=== PATIENT | female | born 1965 | race African-American/Black ===

== ENCOUNTER 2017-01-25 06:20 | Day surgery (SDC) | payer OTHER ==
[~2017-01-25] VITALS: Ht 170.2 cm; Wt 105.2 kg
--- NOTE | ~2017-01-25 | O ---
[facility] [place] [address] OPERATIVE REPORT Name: JIM NELSON Room #: DEP [facility].#: [id number] Admission: 01/25/17 Attend Phys: Jensen Monk DPM Discharge: 01/25/17 Date of : 69 Report #: [id number] THIS REPORT FOR: //name// CC: Jensen ESTES unknown DATE OF SERVICE: 01/25/2017 SURGEON: Jensen Monk DPM. PREOPERATIVE DIAGNOSES: 1. Hammertoe, fourth digit, left foot. 2. Skin lesion, plantar aspect of the right foot. POSTOPERATIVE DIAGNOSES: 1. Hammertoe, fourth digit, left foot. 2. Skin lesion, plantar aspect of the right foot. PROCEDURE: Arthroplasty, hammertoe correction, fourth digit, left foot and excision of lesion, plantar aspect of the right foot. ANESTHESIA: IV sedation, local nerve block. HEMOSTASIS: Applied well-padded ankle tourniquet to the left foot. ESTIMATED BLOOD LOSS: Minimal. COMPLICATIONS: There were no complications during the procedure or the anesthesia. Following is the preoperative course: The patient was seen in the office on a couple of occasions complaining of a painful interdigital corn between the fourth and fifth toes, left foot. X-ray examination showed a bony prominence on both the fifth toe and the fourth toe that was causing the pressure and associated corn. After careful evaluation preoperatively, it was determined that an arthroplasty of the fourth toe should resolve the interdigital corn. The patient also has a longstanding plantar lesion on the right foot, which has recurrently gotten infected and has been debrided on several occasions with recurrence noted on every single occasion of debridement. It was decided at this time as well that excision of this lesion would be performed to eradicate the lesion more permanently on the right foot. The patient understood the risks and complications involved and both these procedures and signed a preoperative consent form and made her understanding. DESCRIPTION OF PROCEDURE: The patient was wheeled in the operating room in the usual supine condition, transferred to the operative table, given IV sedation. [address] [address] OPERATIVE REPORT Name: OMARJIM M Room #: DEP [facility] M.R.#: [id number] Admission: 01/25/17 Attend Phys: Jensen Monk DPM Discharge: 01/25/17 Date of : 69 Report #: [id number] Once IV sedation was found to be adequate, local nerve block was given to both feet. Both feet were then prepped and draped in the usual sterile manner. Upon reentering the operating room, anesthesia was checked and found to be adequate. Esmarch tourniquet was used to exsanguinate the blood from the left foot and the ankle tourniquet elevated to 250 mmHg. A transverse incision was made over the dorsal aspect of the PIPJ of the fourth digit, left foot. This was deepened sharply and bluntly, taking care to cauterize and retract all bleeders. The head of the proximal phalanx was realized and the lateral aspect of the proximal phalangeal head was found to be at the location of the interdigital corn. This was removed in toto enough so that the pressure could be palpated and noted to be removed from this interdigital corn. No other pathology was identified. The wound was copiously flushed with sterile saline and skin closure performed using 4-0 nylon suture in a horizontal mattress fashion. Upon release of the tourniquet on the left foot, cap refill immediately returned to all digits on the left foot. Attention was then directed to the right foot where a lesion on the plantar lateral aspect of the foot was identified of approximately 7 mm in diameter. This was excised beyond the dermis of the lesion and removed in toto and sent to pathology for gross micro inspection. The wound was then closed and a sterile dressing applied to both the plantar wound and the fourth digit on the left foot. No complications were noted during the procedure or the anesthesia. The patient left the operating room in stable condition. She was given Lortab 7.5/325 mg for pain management and will follow up in about 3 days for postoperative wound management. By: 1630 29 Jensen Monk DPM /gladis
--- NOTE | ~2017-01-25 | S ---
[facility] [place] [address] SURGICAL PATH RPT PROCEDURE Name: BETH KING Room #: DEP [facility] M..#: [id number] Admission: 01/25/17 Date of : 69 Discharge: 01/25/17 Report #: [id number] Path Case #: [id number] PATHOLOGY REPORT COLLECTION DATE: 01/25/2017 RECEIVED DATE: 01/26/2017 SUBMITTING PHYS: Dr. Jensen Monk OTHER PHYS: SPECIMEN(S) RECEIVED: A.Right foot skin lesion plantar region * * * * * * * * * * * * FINAL DIAGNOSIS: Tissue designated as, "right foot skin lesion plantar region", biopsy: - Superficial fragments with hyperkeratotosis and acellular squames. - Dermis or epidermis not present for evaluation. COMMENT: Findings may be suggestive of a partially sampled wart, or squamoproliferative lesion. The biopsy is superficial and lack of underlying intact epidermis or dermis precludes a definitive diagnosis. Please correlate clinically and follow up as indicated. (IUV:mml; d/t: 01/27/2017) PATHOLOGIST: Gwendolyn Cervantes M.D. REPORT ELECTRONICALLY SIGNED BY: Gwendolyn Cervantes M.D. DATE/TIME: 01/27/2017 16:30 * * * * * * * * * * * * GROSS PATHOLOGY: Received in formalin labeled "Beth King, right foot skin lesion plantar region," is a shave biopsy measuring 0.6 x 0.5 x 0.5 cm in greatest dimensions. The epidermal surface displays a well-circumscribed, raised, friable, pale taylor lesion consistent with a cutaneous horn measuring 0.5 x 0.5 x 0.5 cm. The margin is inked, and the specimen is bisected and entirely submitted in cassette A1. (KAH; 01/26/2017) CLINICAL HISTORY: Callous right foot, corn left INITIAL CPT CODE(S): A; 10342 Professional services performed by [facility] at [address] [address] SURGICAL PATH RPT PROCEDURE Name: BETH KING Room #: [facility] M.R.#: [id number] Admission: 01/25/17 Date of : 69 Discharge: 01/25/17 Report #: [id number] Path Case #: [id number] , [place] [address] Technical services performed by [facility] at [address] [place] [address], [address] [address]. [facility] [address] [place] [address] PHONE: [phone] DIRECTOR: Rajesh Winters M.D. * * * END OF REPORT * * *
[~2017-01-25 06:20] MED LIST: HYDROCODONE-APA1 TA1 PO; MIDODRINE HCL10 MG PO; RENVELA800 MG PO; VITAMIN D3400 UNIT PO
[2017-01-25 12:10] LABS: HEMATOCRIT 32.4 % (37.0-47.0); HEMOGLOBIN 10.7 gm/dL (12.0-15.0); MCH 29.6 pg (26.0-34.0); MCV 89.7 fL (80.0-100.0); RBC 3.62 mil/uL (4.20-5.00); RDW 14.4 % (10.5-14.5); WBC 7.4 thou/uL (4.0-11.0)
[2017-01-25 12:15] VITALS: BP 147/93
[2017-01-25 12:45] LABS: CALCIUM 6.9 mg/dL (8.5-10.1); CREATININE 12.9 mg/dL (0.6-1.0); POTASSIUM 4.2 mmol/L (3.5-5.1)
[2017-01-25 12:50] LABS: ALBUMIN 3.9 g/dL (3.4-5.0); TOTAL BILIRUBIN 0.5 mg/dL (<0.1-1.0); TOTAL PROTEIN 8.3 g/dL (6.4-8.2)
== END 2017-01-25 15:00 | disposition home or self-care (01) ==
LOC: TBA 06:20 → OR 06:20
PROVIDERS: Podiatrist
DX: M20.42 Other hammer toe(s) (acquired), left foot (principal); L98.8 Other specified disorders of the skin and subcutaneous tissue; L57.0 Actinic keratosis; N18.6 End stage renal disease; E89.0 Postprocedural hypothyroidism; I95.89 Other hypotension; Z87.891 Personal history of nicotine dependence; Z98.890 Other specified postprocedural states; Z98.42 Cataract extraction status, left eye; Z98.41 Cataract extraction status, right eye; D64.89 Other specified anemias; Z79.899 Other long term (current) drug therapy
CPT/HCPCS: 50010; 50101; 50386; 56526; 56871; 62110; 62900; 70005